=== PATIENT | male | born 1975 | race Caucasian/White ===

== ENCOUNTER 2023-03-11 20:14 | Emergency (ER) | payer MEDICAID, OTHER ==
[~2023-03-11] VITALS: Ht 175.3 cm; Wt 93.7 kg
[2023-03-11] MEDS ORDERED: TRIA0.02 TOP (22:09)
[2023-03-11 22:12] VITALS: BP 143/96
== END 2023-03-11 22:19 | disposition home or self-care (01) ==
LOC: ER 20:14
DX: L24.9 Irritant contact dermatitis, unspecified cause (principal)